=== PATIENT | female | born 2000 | race Caucasian/White ===

== ENCOUNTER 2021-06-03 21:47 | Inpatient (IN) ==
[2021-06-03] MEDS ORDERED: Famotidine 20 MG/2 ML VIAL IVP PRN (21:53)
[2021-06-03] MEDS ORDERED: Lidocaine 1% 20 ML MDV INFILT PRN (21:53)
[2021-06-03] MEDS ORDERED: Metoclopramide 10 MG/2 ML VIAL IVP PRN (21:53)
[2021-06-03] MEDS ORDERED: Naloxone 0.4 MG/ML INJ IVP PRN (21:53)
[2021-06-03] MEDS ORDERED: Penicillin G Potassium 5,000,000 UNIT in 0.9 % Sodium Chloride Mini Bag 100 ML IVPB ONE (21:53)
[2021-06-03] MEDS ORDERED: *HR* Nalbuphine 10 MG/ML AMPUL IV PRN (21:53)
[2021-06-03] MEDS: Ringers Solution, Lactated 1,000 ML IVC SCH (22:29)
[2021-06-03] MEDS: miSOPROStoL 25 MCG TABLET PO PRN (22:30)
[2021-06-03 23:03] LABS: Basophils % 0.3 %; Eosinophils # 0.1 K/mcL (0.0-0.6); Hematocrit 35.9 % (35.3-44.9); Immature Granulocytes % 0.3 % (0-4); Lymphocytes # 2.6 K/mcL (0.6-4.6); Lymphocytes % 22.1 %; Mean Corpuscular HGB Conc 33.4 g/dL (31.6-35.5); Mean Corpuscular Hemoglobin 28.6 pg (28.0-33.3); Mean Corpuscular Volume 85.7 fL (83.0-100.0); Mean Platelet Volume 11.1 fL (9.4-12.4); Monocytes # 0.8 K/mcL (0.0-1.3); Monocytes % 6.5 %; Neutrophils # 8.1 K/mcL (1.6-8.9); Platelet Count 241 K/mcL (140-400); Red Blood Count 4.19 M/mcL (3.82-4.97); Red Cell Distribution Width 13.6 % (11.5-14.5); Segmented Neutrophils % 69.8 %; White Blood Count 11.6 K/mcL (4.3-11.1)
[2021-06-03] MEDS ORDERED: FLU Vac QV 21-22 (6Month+)/PF 0.5 ML SYRINGE IM ONE (23:06)
[2021-06-03 23:11] LABS: Amphetamine Screen,Urine Negative ng/mL (Cutoff=1000); Barbiturate Screen,Urine Negative ng/mL (Cutoff=200); Benzodiazepines Screen,Urine Negative ng/mL (Cutoff=200); Cannabinoid Screen,Urine Negative ng/mL (Cutoff = 50); Cocaine Screen,Urine Negative ng/mL (Cutoff= 300); Opiate Screen,Urine Negative ng/mL (Cutoff=300); Phencyclidine Screen,Urine Negative ng/mL (Cutoff=25)
[2021-06-03 23:50] LABS: Influenza A PCR Negative (Negative); Influenza B PCR Negative (Negative); Resp. Syncytial Virus PCR Negative (Negative); SARS-CoV-2 by PCR (In House) Negative (Negative)
[2021-06-04] MEDS: Penicillin G Potassium 2,500,000 UNIT/105 ML MLS IVPB SCH ×6 (02:25→22:24)
[2021-06-04] MEDS ORDERED: Acetaminophen 325 MG TABLET PO ONE (02:45)
[2021-06-04] MEDS: Ondansetron 4 MG/2 ML VIAL IVP PRN (02:48)
[2021-06-04] MEDS: miSOPROStoL 25 MCG TABLET PO PRN (07:44)
[2021-06-04] MEDS: Ringers Solution, Lactated 1,000 ML IVC SCH ×3 (09:20→22:23)
[2021-06-04] MEDS ORDERED: Oxytocin 20 units/ LR 1000 mL 20 UNIT/1,000 ML BAG IVC ONE (11:52)
[2021-06-04] MEDS ORDERED: *HR* FentaNYL (PF) 100 MCG/2 ML VIAL EP ONE (13:26)
[2021-06-04] MEDS ORDERED: EPHEDrine 50 MG/ML VIAL IVP PRN (13:26)
[2021-06-04] MEDS ORDERED: Ropivacaine/PF 0.2% 20 ML VIAL EP ONE (13:26)
[2021-06-04] MEDS: Epidural Premix (fent/bupiv) 110 ML EP SCH ×2 (14:13→20:31)
[2021-06-05] MEDS: Penicillin G Potassium 2,500,000 UNIT/105 ML MLS IVPB SCH (02:25)
[2021-06-05] MEDS: Epidural Premix (fent/bupiv) 110 ML EP SCH (03:31)
[2021-06-05] MEDS: Ondansetron 4 MG/2 ML VIAL IVP PRN (03:48)
[2021-06-05] MEDS ORDERED: Oxytocin 20 units/ LR 1000 mL 20 UNIT/1,000 ML BAG IVC ONE ×2 (06:57→06:59)
[2021-06-05] MEDS ORDERED: Oxytocin 20 units/ LR 1000 mL 20 UNIT/1,000 ML BAG IVC SCH (06:59)
[2021-06-05] MEDS ORDERED: Ondansetron ODT 4 MG TAB.RAPDIS SL PRN (06:59)
[2021-06-05] MEDS ORDERED: Lanolin 7 G OINT...G. TP PRN (06:59)
[2021-06-05] MEDS ORDERED: Benzocaine/Menthol 56 GM AEROSOL SPRAY TP PRN (06:59)
[2021-06-05] MEDS: Ibuprofen 600 MG TABLET PO SCH ×3 (10:08→21:25)
[2021-06-05] MEDS: Prenatal Vit/FA 1 EACH TABLET PO SCH (10:08)
[2021-06-05] MEDS: Acetaminophen 325 MG TABLET PO SCH ×2 (18:47→21:24)
[2021-06-06 00:06] VITALS: TEMP 97.8
[2021-06-06] MEDS: Acetaminophen 325 MG TABLET PO SCH ×2 (01:32→06:14)
[2021-06-06] MEDS: Ibuprofen 600 MG TABLET PO SCH ×2 (04:53→08:19)
[2021-06-06 04:54] VITALS: O2SAT 98
[2021-06-06] MEDS: Prenatal Vit/FA 1 EACH TABLET PO SCH (08:19)
[2021-06-06 08:57] VITALS: BP 101/61; PULSE 76
== END 2021-06-06 13:15 | disposition home or self-care (01) | DRG 560 ==
LOC: 1NENULAB 21:47 → 1NENUOBS 06-05 08:20
PROVIDERS: ADMIT Obstetrics & Gynecology; ATTEND Obstetrics & Gynecology